=== PATIENT | male | born 2005 | race Hispanic/Latino ===

== ENCOUNTER 2025-01-04 16:45 | Emergency (ER) | payer SELFPAY ==
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
[2025-01-04 16:48] VITALS: BP 137/86; PULSE 85; RESP 20; TEMP 36.4; O2SAT 100
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
[2025-01-04] MEDS: ACETAMINOPHEN 500 MG TABLET 1000 MG PO (17:54)
[2025-01-04] MEDS: IBUPROFEN 400 MG TABLET 800 MG PO (17:55)
--- OUTSIDE RECORDS SUMMARY | 2025-01-04 18:24 | XMS_ITS | Referral Summary ---
Author Organization [facility] Address [address] [place] [address] Care Team Providers Care Airline Dispatcher Name Role Phone LuanaLatrices SITE MANAGER-ENDOSCOPY NURSE Primary Care Pro vider Source Comments [facility],non[facility] Affiliates and Associated Physician Practices is amultiple site organization consisting of ambulatory clinics and hospital sitesin [place], [place], [place] and [place]. This disclosure is being madepursuant to the Care Everywhere program and may not contain all information available regarding this patient. 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
--- OUTSIDE RECORDS SUMMARY | 2025-01-04 18:25 | XMS_ITS | Clinical Summary ---
Author Organization [facility] Address [address] [place] [address] Care Team Providers Care Floating Derrick Operator Name Role Phone Unavailable Primary Care Provider Unavailabl e Social History Tobacco Use Types Packs/Day Years Used Date Smoking Tobacco: Never Assessed Sex and Gender Information Value Date Recorded Sex Assigned at Not on file Legal Sex Male 7:56 AM CDT Gender Identity Not on file Sexual Orientation Not on file Plan of Treatment Health Maintenance Due Date Last Done Comments Hepatitis C Virus (HCV) Screening 2004 Meningococcal B Immunization (2 of 2 - Bexsero SCDM 2-dose series) 05/29/2021 11/29/2020 Influenza Immunization (#1) 07/04/202411/04, 11/05/2018, 09/09/2011 SARS-COV-2 Immunization ( season) 2024 02/17/2021, 01/27/2021 Respiratory Syncytial Virus (RSV) Immunization (Adult) (1 - 1-dose 75+ series) 2079 Hepatitis B Immunization Completed 005, 02/21/2005, 2004, Additional history exists Pneumococcal Immunization Combined Aged Out 02/25/2006, 04/22/2005, 02/21/2005, Additional history exists No longer eligible based on patient's age to complete this topic Measles Mumps Rubella (MMR) Immunization Discontinued 03/15/2009, 10/24/2005 Polio (IPV) Immunization Discontinued 009, 04/22/2005, 02/21/2005, Additional history exists Varicella Immunization Discontinued 03/15/2009, 2004 Hepatitis A Immunization Discontinued 03/07/2010, 07/05 DTaP/Tdap/Td Immunization Discontinued 2014, 03/15/2009, 02/25/2006, Additional history exists TdaP Immunization Completed 10/19/2015 Human Papillomavirus (HPV) Immunization Completed 05/12/2018, 11/05/2017 Meningococcal Immunization (ACWY) Completed 11/29/2020, 05/13/2017, 09/09/2011 Rotavirus Immunization Aged Out No lo nger eligible based on patient's age to complete this topic
--- OUTSIDE RECORDS SUMMARY | 2025-01-04 18:25 | XMS_ITS | Patient Health Summary ---
Author Organization [facility] Address [address] [place] [address] Care Team Providers Care Deputy Sheriff Court Services Name Role Phone Latrice Craft MILLED RICE BROKER-PHARMACEUTICAL WORKER Primary Care Pro vider Note from [facility],non-owned Affiliates and Associated Physician Practices is amultiple site organization consisting of ambulatory clinics and hospital sitesin [place], [place], [place] and [place]. This disclosure is being madepursuant to the Care Everywhere program and may not contain all information available regarding this patient. 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
--- OUTSIDE RECORDS SUMMARY | 2025-01-04 18:25 | XMS_ITS | Clinical Summary ---
Author Organization [facility] Address [address] [place] [address] Care Team Providers Care Property Worker Name Role Phone Luana Latrice Ybarramis FORESTRY ENGINEER-ROAD ADVISOR Primary Care Pro vider Source Comments [facility],non-owned Affiliates and Associated Physician Practices is amultiple site organization consisting of ambulatory clinics and hospital sitesin [place], [place], [place] and [place]. This disclosure is being madepursuant to the Care Everywhere program and may not contain all information available regarding this patient. Last updated 18.[facility] Social History Tobacco Use Types Packs/Day Years [...] lb 1.7 oz) 12/04/2018 9:00 A M WEIGHER PRODUCTION Height 164 cm (5' 4.57 ) 12/04/2018 9:00 AM WEIGHER PRODUCTION Body Mass Index 28.18 12/04/2018 9:00 AM WEIGHER PRODUCTION Plan of Treatment Health Maintenance Due Date Last Done Comments HIV SCREENING 2019 HPV VACCINE (1 - Male 3-dose series) 2019 MENINGOCOCCAL (Group B) VACC INE (1 of 2 - Standard) 2020 HEPATITIS C SCREENING 10/14/2022 DTAP/TDAP/TD VACCINES (1 - Tdap) 2023 HEPATITIS B VACCINE (1 of 3 - 19+ 3-dose series) 2023 COVID-19 VACCINE (1 - 2023-2 5 season) 2024 INFLUENZA VACCINE (#1) 2024 DEPRESSION SCREENING 11/03/2024 ZOSTER VACCINE (1 of 2) 2054 HIB VACCINE Aged Out No longer eligi ble based on patient's age to complete this topic MENINGOCOCCAL VACCINE Aged Out No amna genet eligible based on patient's age to complete this topic PNEUMOCOCCAL VACCINE Aged Out No long er eligible based on patient's age to complete this topic Care Teams Property Worker Relationship Specialty Start Date End Date Latrice Craft APRN-LEON [address] [place] [phone] PCP - General Nurse Practitioner 11/25/18
[2025-01-04 18:47] VITALS: BP 130/80; PULSE 80; RESP 18; TEMP 36.6; O2SAT 100
== END 2025-01-04 18:47 | disposition home or self-care (01) ==
PROVIDERS: Emergency Provider Physician Assistant; PCP Registered Nurse
DX: S20.211A Contusion of right front wall of thorax, initial encounter (principal); S46.911A Strain of unspecified muscle, fascia and tendon at shoulder and upper arm level, right arm, initial encounter; V43.52XA Car driver injured in collision with other type car in traffic accident, initial encounter
CPT/HCPCS: 70450; 71046; 71100; 73030; 99284; A9270